=== PATIENT | male | born 1985 | race Caucasian/White ===

== ENCOUNTER 2021-03-19 14:15 | Emergency (ER) | payer MEDICAID ==
[~2021-03-19] VITALS: Ht 172.7 cm; Wt 77.1 kg
[~2021-03-19 14:15] MED LIST: OMEP40EC24 PO
[2021-03-19 14:22] VITALS: BP 135/79
--- NOTE | 2021-03-19 14:24 | NUR ---
35 Y/M PRESENTS TO ED FOR SUTURE REMOVAL. DAHIANA AND SUTURES NOTED TO L POSTERIOR ARM AND RADIATES TO L BICEP. PT REPORTS SUTURES/ DAHIANA WERE PLACED GREATER THAN 1 MONTH AGO IN A HOSPITAL IN [place]. PT REPORTS 8/10 PAIN. PT TAKING GABAPENTIN WITH NO RELIEF. REQUESTING ALBUTEROL REFILL PMH- ASTHMA NKDA RX- GABAPENTIN
[2021-03-19] MEDS ORDERED: BACITRACIN OINT 500 UNITS/GM PKT TP ONE (14:41)
[2021-03-19 14:53] VITALS: BP 135/79
--- NOTE | 2021-03-19 14:53 | NUR ---
Patient discharged with v/s stable. Written and verbal after care instructions given and explained. Patient verbalized understanding. Ambulatory with steady gait. All questions addressed prior to discharge. Advised to follow up with PMD.
== END 2021-03-19 14:53 | disposition home or self-care (01) ==
LOC: MED 14:15 → MERGE 14:15 → MED 14:53
DX: S41.112D Laceration without foreign body of left upper arm, subsequent encounter (principal); X58.XXXD Exposure to other specified factors, subsequent encounter
CPT/HCPCS: 99282